=== PATIENT | male | born 1940 | race Asian ===

== ENCOUNTER 2016-06-30 17:13 | Inpatient (IN) | payer MEDICAID, OTHER ==
[2016-06-30] MEDS ORDERED: PRINIVIL10 M1 PO (17:38)
[2016-06-30] MEDS ORDERED: LIPITOR10 M1 PO (17:38)
--- NOTE | 2016-06-30 20:46 | NUR ---
VIRTUAL CARE NOTE: ASSESSMENT DEFERRED. PT. SLEEPING.
[2016-07-01 05:52] LABS: BASO % 0.2 % (0-2); EOS % 1.5 % (0-7); EOSINOPHIL ABSOLUTE COUNT 0.1 tho/cmm (0.0-0.7); HCT-HEMATOCRIT 37.6 % (36.0-53.5); IMMATURE GRANULOCYTES ABSOLUTE 0.01 tho/cmm (0-0.03); IMMATURE GRANULOCYTES PERCENT 0.2 % (0-0.3); LYMPH % 21.9 % (20-45); LYMPH ABSOLUTE COUNT 1.3 tho/cmm (0.8-4.5); MCH (MEAN CORPUSCULAR HGB) 21.4 pg (28.0-32.0); MCHC MEAN CORPUSCULAR HGB CONC 31.9 % (32.0-36.0); MCV (MEAN CELL VOLUME) 67.1 fl (82.0-96.0); MEAN PLATELET VOLUME 9.2 cmc (9.4-12.4); MONO % 9.2 % (0-12); MONOCYTE ABSOLUTE COUNT 0.6 tho/cmm (0.0-1.2); NEUTROPHIL ABSOLUTE COUNT 4.1 tho/cmm (1.6-8.0); NEUTROPHIL-AUTOMATED 4.1 tho/cmm (1.6-8.0); PLATELET COUNT 230 tho/cmm (150-450); RED CELL DISTRIBUTION WIDTH 15.1 % (12.4-16.4); WHITE BLOOD COUNT 6.1 tho/cmm (4.0-10.0)
[2016-07-01 06:05] LABS: ALB/GLOB RATIO 0.7 (0.8-2.0); ALBUMIN 2.9 g/dl (3.5-5.0); ALKALINE PHOSPHATASE 137 U/L (33-138); ALT/SGPT 27 U/L (12-78); ANION GAP 9 mmol/L (0-20); AST/SGOT 45 U/L (10-40); BILIRUBIN,TOTAL 0.4 mg/dl (0.0-1.5); BLOOD UREA NITROGEN 16 mg/dl (6-24); CALCIUM 8.5 mg/dl (8.5-10.5); CARBON DIOXIDE-VENOUS 28 mmol/L (22-32); CHLORIDE 108 mmol/l (96-110); CREATININE 0.73 mg/dl (0.60-1.30); GLUCOSE 86 mg/dL (70-110); POTASSIUM 3.8 mmol/L (3.7-5.1); SODIUM 141 mmol/L (135-145); eGFR VALUE FOR BLACK >90 mL/Min
--- NOTE | 2016-07-01 09:15 | NUR ---
OSCAR RIVAS NOTE: VN ROUNDED WITH IMS AND FLOOR RN THIS AM. PT STATES FEELING OK, STILL COUGING SOME YET THAT CAUSING MILD PAIN ON HIS RIB SIDE. INFOMRED PT WILL HAVE PRN PAIN TX CALL NEEDED. PULM WILL COME SEE TODAY, TEST FOR TB HAS NOT BACK YET. PLAN OF CARE REVIEWED WITH PT. PT DENIES QUESTIONS OR CONCERNS.
[2016-07-01 09:50] LABS: C-REACTIVE PROTEIN 0.5 mg/dl (0-0.9)
[2016-07-01 09:53] LABS: TSH-THYROID STIMULATING HORM. 1.66 uIU/ml (0.40-3.80)
[2016-07-01 10:10] LABS: PROCALCITONIN <0.05 ng/ml (0.05-0.09)
--- NOTE | 2016-07-02 08:30 | NUR ---
VIRTUAL CARE NOTE: ROUNDED WITH FLOOR NURSE IN THE ROOM. PT STATES HAVING A GOOD NIGHT LAST NIGHT, REQUESTS TO HAVE PAIN PILL AGAIN TONIGHT BEFORE BED. DENIES ANY NEEDS OR CONERNS. REINFORCED WITH PT SPUTUM COLLECTION IF HAVING ANY AND PLAN OF BRONCH AND BX TOMORROW.
[2016-07-03 06:12] LABS: BASO % 0.2 % (0-2); EOS % 1.6 % (0-7); EOSINOPHIL ABSOLUTE COUNT 0.1 tho/cmm (0.0-0.7); HCT-HEMATOCRIT 37.6 % (36.0-53.5); HGB-HEMOGLOBIN 12.1 gm/dl (13.5-17.0); IMMATURE GRANULOCYTES ABSOLUTE 0.01 tho/cmm (0-0.03); IMMATURE GRANULOCYTES PERCENT 0.2 % (0-0.3); LYMPH % 18.7 % (20-45); LYMPH ABSOLUTE COUNT 1.2 tho/cmm (0.8-4.5); MCH (MEAN CORPUSCULAR HGB) 21.5 pg (28.0-32.0); MCHC MEAN CORPUSCULAR HGB CONC 32.2 % (32.0-36.0); MCV (MEAN CELL VOLUME) 66.9 fl (82.0-96.0); MEAN PLATELET VOLUME 9.2 cmc (9.4-12.4); MONO % 10.7 % (0-12); MONOCYTE ABSOLUTE COUNT 0.7 tho/cmm (0.0-1.2); NEUTROPHIL ABSOLUTE COUNT 4.3 tho/cmm (1.6-8.0); NEUTROPHIL-AUTOMATED 4.3 tho/cmm (1.6-8.0); NEUTROPHILS % 68.6 % (40-80); PLATELET COUNT 223 tho/cmm (150-450); RED BLOOD COUNT 5.62 mil/cmm (4.40-5.70); RED CELL DISTRIBUTION WIDTH 15.2 % (12.4-16.4); WHITE BLOOD COUNT 6.3 tho/cmm (4.0-10.0)
[2016-07-03 06:18] LABS: PROTHROMBIN TIME 11.7 SECONDS (9.0-13.6)
[2016-07-03 06:24] LABS: ANION GAP 9 mmol/L (0-20); BLOOD UREA NITROGEN 16 mg/dl (6-24); CALCIUM 8.5 mg/dl (8.5-10.5); CARBON DIOXIDE-VENOUS 29 mmol/L (22-32); CHLORIDE 105 mmol/l (96-110); CREATININE 0.76 mg/dl (0.60-1.30); GLUCOSE 84 mg/dL (70-110); MAGNESIUM 2.1 mg/dl (1.3-2.6); POTASSIUM 3.8 mmol/L (3.7-5.1); SODIUM 139 mmol/L (135-145); eGFR VALUE FOR BLACK >90 mL/Min
--- NOTE | 2016-07-04 14:47 | NUR ---
DR LAWLER CONFIRMED TO DC TB PRECAUTIONS
--- NOTE | 2016-07-04 20:07 | NUR ---
VIRTUAL CARE NOTE: ASSESSMENT DEFERRED. PT. SLEEPING.
[2016-07-05 12:54] LABS: BASO % 0.3 % (0-2); EOS % 0.8 % (0-7); EOSINOPHIL ABSOLUTE COUNT 0.1 tho/cmm (0.0-0.7); HCT-HEMATOCRIT 39.9 % (36.0-53.5); HGB-HEMOGLOBIN 12.8 gm/dl (13.5-17.0); IMMATURE GRANULOCYTES ABSOLUTE 0.02 tho/cmm (0-0.03); IMMATURE GRANULOCYTES PERCENT 0.3 % (0-0.3); LYMPH % 20.4 % (20-45); LYMPH ABSOLUTE COUNT 1.6 tho/cmm (0.8-4.5); MCH (MEAN CORPUSCULAR HGB) 21.7 pg (28.0-32.0); MCHC MEAN CORPUSCULAR HGB CONC 32.1 % (32.0-36.0); MCV (MEAN CELL VOLUME) 67.7 fl (82.0-96.0); MEAN PLATELET VOLUME 9.5 cmc (9.4-12.4); MONO % 6.3 % (0-12); MONOCYTE ABSOLUTE COUNT 0.5 tho/cmm (0.0-1.2); NEUTROPHIL ABSOLUTE COUNT 5.7 tho/cmm (1.6-8.0); NEUTROPHIL-AUTOMATED 5.7 tho/cmm (1.6-8.0); NEUTROPHILS % 71.9 % (40-80); PLATELET COUNT 245 tho/cmm (150-450); RED BLOOD COUNT 5.89 mil/cmm (4.40-5.70); RED CELL DISTRIBUTION WIDTH 15.2 % (12.4-16.4); WHITE BLOOD COUNT 7.9 tho/cmm (4.0-10.0)
[2016-07-05 13:12] LABS: IRON 37 ug/dl (49-181); IRON BINDING CAPACITY 223 ug/dl (250-450)
[2016-07-05 13:13] LABS: ALB/GLOB RATIO 0.8 (0.8-2.0); ALBUMIN 3.4 g/dl (3.5-5.0); ALKALINE PHOSPHATASE 136 U/L (33-138); ALT/SGPT 37 U/L (12-78); ANION GAP 11 mmol/L (0-20); AST/SGOT 43 U/L (10-40); BILIRUBIN,TOTAL 0.2 mg/dl (0.0-1.5); BLOOD UREA NITROGEN 21 mg/dl (6-24); CALCIUM 8.4 mg/dl (8.5-10.5); CARBON DIOXIDE-VENOUS 30 mmol/L (22-32); CHLORIDE 103 mmol/l (96-110); GLUCOSE 98 mg/dL (70-110); POTASSIUM 4.2 mmol/L (3.7-5.1); SODIUM 140 mmol/L (135-145); eGFR VALUE FOR BLACK >90 mL/Min
[2016-07-05] MEDS ORDERED: NORCO 5-325 TA1 EACH PO (13:57)
[2016-07-05] MEDS ORDERED: STOP HOME MEDICATION (13:58)
[2016-07-05] MEDS ORDERED: TESSALON PERLE100 M1 PO (15:15)
--- NOTE | 2016-07-05 17:42 | NUR ---
VIRTUAL CARE NOTE: FAMILY IN THE ROOM READY FOR DISCHARGE INSTRUCTIONS. INFORMATION GIVEN TO S[place] IN [place]. ALL QUESTIONS ANSWERED. PT PRESENT IN THE ROOM AFTER COMING BACK FROM HIS BONE SCAN. INFORM FLOOR NURSES DISCHARGE INSTRUCTIONS DONE.
[2016-09-15] MEDS ORDERED: OMEPRAZOLE20 M3 PO (12:43)
[2016-09-15] MEDS ORDERED: PREDNISONE10 M1 PO (12:44)
== END 2016-07-05 17:56 | DRG 166 ==
LOC: 5WF 17:13 → 5WD 19:29
PROVIDERS: Hospitalist; Internal Medicine Cardiovascular Disease; Internal Medicine Medical Oncology; ADMIT Hospitalist
PROC: 0BBJ8ZX Excision of Left Lower Lung Lobe, Via Natural or Artificial Opening Endoscopic, Diagnostic (ICD-10-PCS; principal; 2016-07-03)
PROC: 0BB38ZX Excision of Right Main Bronchus, Via Natural or Artificial Opening Endoscopic, Diagnostic (ICD-10-PCS; 2016-07-03)
DX: C34.32 Malignant neoplasm of lower lobe, left bronchus or lung (principal); J85.0 Gangrene and necrosis of lung; C79.9 Secondary malignant neoplasm of unspecified site; J44.9 Chronic obstructive pulmonary disease, unspecified; I10 Essential (primary) hypertension; E78.5 Hyperlipidemia, unspecified; Z87.891 Personal history of nicotine dependence; D50.9 Iron deficiency anemia, unspecified; R22.9 Localized swelling, mass and lump, unspecified
CPT/HCPCS: A9503; A9577

== ENCOUNTER 2016-08-22 16:31 | Inpatient (IN) | payer MEDICAID, OTHER ==
[~2016-08-22 16:31] MED LIST: LIPITOR10 M1 PO; NORCO 5-325 TA1 EACH PO; PRINIVIL10 M1 PO; STOP HOME MEDICATION; TESSALON PERLE100 M1 PO
--- NOTE | 2016-08-22 16:50 | NUR ---
Admitted from doctors office. Complains of left sided chest pain. States it is in his lung. Nephew interprets for patient.
--- NOTE | 2016-08-22 17:00 | NUR ---
Iv started. EKG done at bedside
[2016-08-22 18:01] LABS: ABG CO2 ARTERIAL 25 mmol/L (21-27); ARTERIAL BLD GAS O2 SATURATION 95 % (95-98); ARTERIAL BLOOD GAS PCO2 32 mmHg (32-45); ARTERIAL PO2 71 mmHg (70-100); BICARBONATE 24 mmol/L (21-28); BLOOD GAS BASE EXCESS 1 mM/L (-/+3); PH 7.49 Units (7.35-7.45)
[2016-08-22 18:09] LABS: BASO % 0.1 % (0-2); HCT-HEMATOCRIT 33.1 % (36.0-53.5); HGB-HEMOGLOBIN 11.3 gm/dl (13.5-17.0); IMMATURE GRANULOCYTES ABSOLUTE 0.41 tho/cmm (0-0.03); IMMATURE GRANULOCYTES PERCENT 2.7 % (0-0.3); LYMPH % 4.2 % (20-45); LYMPH ABSOLUTE COUNT 0.6 tho/cmm (0.8-4.5); MCHC MEAN CORPUSCULAR HGB CONC 34.1 % (32.0-36.0); MCV (MEAN CELL VOLUME) 64.5 fl (82.0-96.0); MEAN PLATELET VOLUME 9.7 cmc (9.4-12.4); MONO % 3.4 % (0-12); MONOCYTE ABSOLUTE COUNT 0.5 tho/cmm (0.0-1.2); NEUTROPHIL ABSOLUTE COUNT 13.5 tho/cmm (1.6-8.0); NEUTROPHIL-AUTOMATED 13.5 tho/cmm (1.6-8.0); NEUTROPHILS % 89.6 % (40-80); PLATELET COUNT 171 tho/cmm (150-450); RED BLOOD COUNT 5.13 mil/cmm (4.40-5.70); RED CELL DISTRIBUTION WIDTH 18.9 % (12.4-16.4); WHITE BLOOD COUNT 15.1 tho/cmm (4.0-10.0)
[2016-08-22 18:24] LABS: ALB/GLOB RATIO 0.4 (0.8-2.0); ALBUMIN 1.8 g/dl (3.5-5.0); ALT/SGPT 64 U/L (12-78); ANION GAP 15 mmol/L (0-20); AST/SGOT 58 U/L (10-40); BILIRUBIN,TOTAL 0.5 mg/dl (0.0-1.5); BLOOD UREA NITROGEN 19 mg/dl (6-24); CALCIUM 7.8 mg/dl (8.5-10.5); CARBON DIOXIDE-VENOUS 26 mmol/L (22-32); CHLORIDE 94 mmol/l (96-110); CREATININE 0.83 mg/dl (0.60-1.30); GLUCOSE 118 mg/dL (70-110); POTASSIUM 3.8 mmol/L (3.7-5.1); SODIUM 131 mmol/L (135-145); eGFR VALUE FOR BLACK >90 mL/Min
[2016-08-22 18:33] LABS: ALKALINE PHOSPHATASE 695 U/L (33-138)
[2016-08-22 18:35] LABS: PROCALCITONIN 0.67 ng/ml (0.05-0.09)
[2016-08-22 22:12] LABS: URINE BILIRUBIN NEGATIVE (NEG); URINE BLOOD MODERATE (NEG); URINE GLUCOSE (UA) NEGATIVE (NEG); URINE KETONE NEGATIVE (NEG); URINE LEUKOCYTE ESTERASE NEGATIVE (NEG); URINE NITRITE NEGATIVE (NEG); URINE PROTEIN SMALL (NEG)
[2016-08-22 22:18] LABS: URINE APPEARANCE CLEAR; URINE COLOR YELLOW
[2016-08-22 22:19] LABS: URINE EPITHELIAL CELLS 0 /[HPF] (0-10); URINE RBC 0 /[HPF] (0-5); URINE WBC 0-1 /[HPF] (0-5)
[2016-08-23 08:00] LABS: BASO % 0.1 % (0-2); EOS % 0.1 % (0-7); HCT-HEMATOCRIT 30.7 % (36.0-53.5); HGB-HEMOGLOBIN 10.2 gm/dl (13.5-17.0); IMMATURE GRANULOCYTES ABSOLUTE 0.35 tho/cmm (0-0.03); IMMATURE GRANULOCYTES PERCENT 2.6 % (0-0.3); LYMPH % 7.6 % (20-45); MCH (MEAN CORPUSCULAR HGB) 21.4 pg (28.0-32.0); MCHC MEAN CORPUSCULAR HGB CONC 33.2 % (32.0-36.0); MCV (MEAN CELL VOLUME) 64.5 fl (82.0-96.0); MEAN PLATELET VOLUME 9.1 cmc (9.4-12.4); MONO % 3.7 % (0-12); MONOCYTE ABSOLUTE COUNT 0.5 tho/cmm (0.0-1.2); NEUTROPHIL ABSOLUTE COUNT 11.5 tho/cmm (1.6-8.0); NEUTROPHIL-AUTOMATED 11.5 tho/cmm (1.6-8.0); NEUTROPHILS % 85.9 % (40-80); PLATELET COUNT 196 tho/cmm (150-450); RED BLOOD COUNT 4.76 mil/cmm (4.40-5.70); RED CELL DISTRIBUTION WIDTH 18.9 % (12.4-16.4); WHITE BLOOD COUNT 13.4 tho/cmm (4.0-10.0)
[2016-08-23 08:22] LABS: ANION GAP 15 mmol/L (0-20); BLOOD UREA NITROGEN 13 mg/dl (6-24); CALCIUM 7.4 mg/dl (8.5-10.5); CARBON DIOXIDE-VENOUS 25 mmol/L (22-32); CHLORIDE 99 mmol/l (96-110); CREATININE 0.72 mg/dl (0.60-1.30); GLUCOSE 105 mg/dL (70-110); POTASSIUM 3.9 mmol/L (3.7-5.1); SODIUM 135 mmol/L (135-145); eGFR VALUE FOR BLACK >90 mL/Min
[2016-08-23] MEDS ORDERED: AMBIEN5 M1 PO (10:09)
[2016-08-23] MEDS ORDERED: LIPITOR10 M1 PO (10:11)
[2016-08-26] MEDS ORDERED: AUGMENTIN 875-1 EAC2 PO (13:20)
[2016-09-15] MEDS ORDERED: OMEPRAZOLE20 M3 PO (12:43)
[2016-09-15] MEDS ORDERED: PREDNISONE10 M1 PO (12:44)
== END 2016-08-26 14:30 | DRG 190 ==
LOC: PCUA 16:31
PROVIDERS: ADMIT Internal Medicine
PROC: DWY27ZZ Contact Radiation of Chest (ICD-10-PCS; principal; 2016-08-24)
DX: J44.0 Chronic obstructive pulmonary disease with (acute) lower respiratory infection (principal); J18.9 Pneumonia, unspecified organism; C79.51 Secondary malignant neoplasm of bone; C79.31 Secondary malignant neoplasm of brain; I31.3 Pericardial effusion (noninflammatory); C34.90 Malignant neoplasm of unspecified part of unspecified bronchus or lung; D64.9 Anemia, unspecified; I10 Essential (primary) hypertension; R07.9 Chest pain, unspecified; E78.5 Hyperlipidemia, unspecified; F50.89 Other specified eating disorder; Y95 Nosocomial condition; R63.4 Abnormal weight loss; Z68.21 Body mass index [BMI] 21.0-21.9, adult; R00.0 Tachycardia, unspecified; Z87.891 Personal history of nicotine dependence
CPT/HCPCS: C8929; J1650; J2270; J2543; J3260; J3370; J7030; J7512; Q9967

== ENCOUNTER 2016-09-15 13:13 | Inpatient (IN) | payer MEDICAID ==
[~2016-09-15 13:13] MED LIST changes: +AMBIEN5 M1 PO; +AUGMENTIN 875-1 EAC2 PO; +OMEPRAZOLE20 M3 PO; +PREDNISONE10 M1 PO
[2016-09-16 17:56] LABS: ALB/GLOB RATIO 0.5 (0.8-2.0); ALT/SGPT 173 U/L (12-78); ANION GAP 13 mmol/L (0-20); AST/SGOT 160 U/L (10-40); BILIRUBIN,TOTAL 7.3 mg/dl (0.0-1.5); BLOOD UREA NITROGEN 14 mg/dl (6-24); CALCIUM 8.1 mg/dl (8.5-10.5); CARBON DIOXIDE-VENOUS 26 mmol/L (22-32); CHLORIDE 104 mmol/l (96-110); CREATININE 0.65 mg/dl (0.60-1.30); GLUCOSE 105 mg/dL (70-110); POTASSIUM 3.7 mmol/L (3.7-5.1); SODIUM 139 mmol/L (135-145); eGFR VALUE FOR BLACK >90 mL/Min
[2016-09-16 18:13] LABS: ALKALINE PHOSPHATASE 1858 U/L (33-138)
[2016-09-17 06:22] LABS: HGB-HEMOGLOBIN 9.3 gm/dl (13.5-17.0); IMMATURE GRANULOCYTES ABSOLUTE 0.16 tho/cmm (0-0.03); IMMATURE GRANULOCYTES PERCENT 1.4 % (0-0.3); LYMPH % 9.8 % (20-45); LYMPH ABSOLUTE COUNT 1.1 tho/cmm (0.8-4.5); MCH (MEAN CORPUSCULAR HGB) 21.2 pg (28.0-32.0); MCHC MEAN CORPUSCULAR HGB CONC 32.1 % (32.0-36.0); MCV (MEAN CELL VOLUME) 66.1 fl (82.0-96.0); MONO % 3.7 % (0-12); MONOCYTE ABSOLUTE COUNT 0.4 tho/cmm (0.0-1.2); NEUTROPHIL ABSOLUTE COUNT 9.5 tho/cmm (1.6-8.0); NEUTROPHIL-AUTOMATED 9.5 tho/cmm (1.6-8.0); NEUTROPHILS % 85.1 % (40-80); PLATELET COUNT 246 tho/cmm (150-450); RED BLOOD COUNT 4.39 mil/cmm (4.40-5.70); RED CELL DISTRIBUTION WIDTH 21.3 % (12.4-16.4); WHITE BLOOD COUNT 11.2 tho/cmm (4.0-10.0)
[2016-09-17 06:35] LABS: ALB/GLOB RATIO 0.6 (0.8-2.0); ALBUMIN 1.9 g/dl (3.5-5.0); ALT/SGPT 161 U/L (12-78); ANION GAP 13 mmol/L (0-20); AST/SGOT 143 U/L (10-40); BLOOD UREA NITROGEN 14 mg/dl (6-24); CALCIUM 7.6 mg/dl (8.5-10.5); CARBON DIOXIDE-VENOUS 25 mmol/L (22-32); CHLORIDE 104 mmol/l (96-110); CREATININE 0.75 mg/dl (0.60-1.30); GLUCOSE 132 mg/dL (70-110); POTASSIUM 3.5 mmol/L (3.7-5.1); SODIUM 138 mmol/L (135-145); eGFR VALUE FOR BLACK >90 mL/Min
[2016-09-17 06:57] LABS: ALKALINE PHOSPHATASE 1558 U/L (33-138); BILIRUBIN,TOTAL 3.2 mg/dl (0.0-1.5)
[2016-09-18 05:53] LABS: EOS % 0.1 % (0-7); HCT-HEMATOCRIT 28.5 % (36.0-53.5); IMMATURE GRANULOCYTES ABSOLUTE 0.11 tho/cmm (0-0.03); IMMATURE GRANULOCYTES PERCENT 0.8 % (0-0.3); LYMPH % 8.1 % (20-45); LYMPH ABSOLUTE COUNT 1.1 tho/cmm (0.8-4.5); MCHC MEAN CORPUSCULAR HGB CONC 31.6 % (32.0-36.0); MCV (MEAN CELL VOLUME) 66.4 fl (82.0-96.0); MEAN PLATELET VOLUME 9.2 cmc (9.4-12.4); MONO % 6.8 % (0-12); MONOCYTE ABSOLUTE COUNT 0.9 tho/cmm (0.0-1.2); NEUTROPHIL ABSOLUTE COUNT 11.3 tho/cmm (1.6-8.0); NEUTROPHIL-AUTOMATED 11.3 tho/cmm (1.6-8.0); NEUTROPHILS % 84.2 % (40-80); PLATELET COUNT 260 tho/cmm (150-450); RED BLOOD COUNT 4.29 mil/cmm (4.40-5.70); RED CELL DISTRIBUTION WIDTH 21.5 % (12.4-16.4); WHITE BLOOD COUNT 13.4 tho/cmm (4.0-10.0)
[2016-09-18 06:05] LABS: ALB/GLOB RATIO 0.5 (0.8-2.0); ALBUMIN 1.9 g/dl (3.5-5.0); ALT/SGPT 158 U/L (12-78); ANION GAP 11 mmol/L (0-20); AST/SGOT 158 U/L (10-40); BLOOD UREA NITROGEN 14 mg/dl (6-24); CALCIUM 7.8 mg/dl (8.5-10.5); CARBON DIOXIDE-VENOUS 25 mmol/L (22-32); CHLORIDE 109 mmol/l (96-110); CREATININE 0.63 mg/dl (0.60-1.30); GLUCOSE 93 mg/dL (70-110); POTASSIUM 3.1 mmol/L (3.7-5.1); SODIUM 142 mmol/L (135-145); eGFR VALUE FOR BLACK >90 mL/Min
[2016-09-18 06:13] LABS: ALKALINE PHOSPHATASE 1448 U/L (33-138)
[2016-09-18 13:08] LABS: BASO % 0.1 % (0-2); EOS % 0.2 % (0-7); HCT-HEMATOCRIT 28.7 % (36.0-53.5); HGB-HEMOGLOBIN 9.1 gm/dl (13.5-17.0); IMMATURE GRANULOCYTES ABSOLUTE 0.08 tho/cmm (0-0.03); IMMATURE GRANULOCYTES PERCENT 0.7 % (0-0.3); LYMPH % 8.8 % (20-45); LYMPH ABSOLUTE COUNT 1.1 tho/cmm (0.8-4.5); MCH (MEAN CORPUSCULAR HGB) 21.2 pg (28.0-32.0); MCHC MEAN CORPUSCULAR HGB CONC 31.7 % (32.0-36.0); MCV (MEAN CELL VOLUME) 66.9 fl (82.0-96.0); MEAN PLATELET VOLUME 9.3 cmc (9.4-12.4); MONOCYTE ABSOLUTE COUNT 0.9 tho/cmm (0.0-1.2); NEUTROPHIL ABSOLUTE COUNT 10.2 tho/cmm (1.6-8.0); NEUTROPHIL-AUTOMATED 10.2 tho/cmm (1.6-8.0); NEUTROPHILS % 83.2 % (40-80); PLATELET COUNT 246 tho/cmm (150-450); RED BLOOD COUNT 4.29 mil/cmm (4.40-5.70); RED CELL DISTRIBUTION WIDTH 21.4 % (12.4-16.4); WHITE BLOOD COUNT 12.2 tho/cmm (4.0-10.0)
[2016-09-18 13:15] LABS: INR 1.1 INR (0.9-1.1); PROTHROMBIN TIME 12.3 SECONDS (9.0-13.6)
[2016-09-18 13:20] LABS: ANION GAP 11 mmol/L (0-20); BLOOD UREA NITROGEN 15 mg/dl (6-24); CALCIUM 7.7 mg/dl (8.5-10.5); CARBON DIOXIDE-VENOUS 26 mmol/L (22-32); CHLORIDE 110 mmol/l (96-110); CREATININE 0.63 mg/dl (0.60-1.30); GLUCOSE 85 mg/dL (70-110); POTASSIUM 3.1 mmol/L (3.7-5.1); SODIUM 144 mmol/L (135-145); eGFR VALUE FOR BLACK >90 mL/Min
[2016-09-18] MEDS ORDERED: TESSALON PERLE100 M1 PO (16:36)
[2016-09-18] MEDS ORDERED: PHENERGAN PO (16:38)
[2016-09-18] MEDS ORDERED: CODEINE PO (16:38)
== END 2016-09-18 19:21 | DRG 445 ==
LOC: 5WF 13:13 → PACU 09-16 13:00 → 5WF 09-16 13:31
PROVIDERS: Radiology Diagnostic Radiology; ADMIT Internal Medicine Medical Oncology
PROC: 0F798DZ Dilation of Common Bile Duct with Intraluminal Device, Via Natural or Artificial Opening Endoscopic (ICD-10-PCS; principal; 2016-09-16)
PROC: BF10YZZ Fluoroscopy of Bile Ducts using Other Contrast (ICD-10-PCS; 2016-09-16)
PROC: 0JH60WZ Insertion of Totally Implantable Vascular Access Device into Chest Subcutaneous Tissue and Fascia, Open Approach (ICD-10-PCS; 2016-09-18)
PROC: 02H633Z Insertion of Infusion Device into Right Atrium, Percutaneous Approach (ICD-10-PCS; 2016-09-18)
PROC: B214YZZ Fluoroscopy of Right Heart using Other Contrast (ICD-10-PCS; 2016-09-18)
DX: K83.1 Obstruction of bile duct (principal); C34.90 Malignant neoplasm of unspecified part of unspecified bronchus or lung; C77.9 Secondary and unspecified malignant neoplasm of lymph node, unspecified; C79.31 Secondary malignant neoplasm of brain; C78.7 Secondary malignant neoplasm of liver and intrahepatic bile duct; C79.51 Secondary malignant neoplasm of bone; C79.72 Secondary malignant neoplasm of left adrenal gland; C79.71 Secondary malignant neoplasm of right adrenal gland; I31.3 Pericardial effusion (noninflammatory); D50.9 Iron deficiency anemia, unspecified; E87.6 Hypokalemia; I10 Essential (primary) hypertension; E78.5 Hyperlipidemia, unspecified; Z87.891 Personal history of nicotine dependence; Z79.899 Other long term (current) drug therapy; Z79.52 Long term (current) use of systemic steroids; G89.3 Neoplasm related pain (acute) (chronic); K75.4 Autoimmune hepatitis
CPT/HCPCS: C1769; C1788; C1876; J0690; J1720; J1956; J2250; J3010; J7030; Q9966